=== PATIENT | male | born 1980 | race Caucasian/White ===

== ENCOUNTER 2023-02-23 00:49 | Emergency (ER) | payer BC ==
[~2023-02-23] VITALS: Ht 172.7 cm; Wt 95.5 kg
[2023-02-23 01:07] VITALS: BP 126/79; PULSE 90; TEMP 98.1
== END 2023-02-23 05:53 | disposition home or self-care (01) ==
LOC: COL.ER 00:49
DX: S52.611A Displaced fracture of right ulna styloid process, initial encounter for closed fracture (principal); S52.571A Other intraarticular fracture of lower end of right radius, initial encounter for closed fracture; W01.0XXA Fall on same level from slipping, tripping and stumbling without subsequent striking against object, initial encounter; Y92.321 Football field as the place of occurrence of the external cause; Y93.39 Activity, other involving climbing, rappelling and jumping off